=== PATIENT | male | born 1995 | race Caucasian/White ===

== ENCOUNTER 2025-02-20 08:42 | Inpatient (IN) | payer SELFPAY ==
[~2025-02-20] VITALS: Ht 182.9 cm; Wt 121.1 kg
[2025-02-20] MEDS: SODIUM CHLORIDE 0.9% 1,000 ML IV ONE ×2 (09:15→13:55)
[2025-02-20] MEDS ORDERED: ASPIRIN 81MG TABLET PO ONE (09:15)
[2025-02-20] MEDS ORDERED: AMLODIPINE 10MG TABLET PO ONE (09:15)
[2025-02-20 10:04] LABS: BASOPHILS % 0.6 % (0.0-2.0); EOSINOPHILS % 0.4 % (0.0-5.0); HEMATOCRIT. 41.9 % (42.0-52.0); HEMOGLOBIN. 14.4 g/dL (14.0-18.0); MEAN CORPUSCULAR HEMOGLOBIN 28.1 pg (28.0-32.0); MEAN CORPUSCULAR HGB CONC 34.4 g/dL (31.0-37.0); MEAN CORPUSCULAR VOLUME 81.7 fL (80.0-94.0); MEAN PLATELET VOLUME 7.8 fl (7.4-10.4); MONOCYTES % 6.8 % (2.0-8.0); NEUTROPHILS % 75.2 % (40.0-76.0); PLATELET 246 x1000/uL (130-400); RED BLOOD CELL COUNT 5.12 mill/uL (4.7-6.1); RED CELL DISTRIBUTION WIDTH 13.5 % (11.6-14.6)
[2025-02-20 10:19] LABS: CHLORIDE 105 mEq/L (98-107); POTASSIUM 3.7 mEq/L (3.5-5.1); SODIUM 139 mEq/L (136-145)
[2025-02-20 10:20] LABS: CARBON DIOXIDE 21 mEq/L (21-32)
[2025-02-20 10:21] LABS: CALCIUM 8.8 mg/dL (8.7-10.4)
[2025-02-20 10:25] LABS: GLUCOSE 113 mg/dL (70-105); UREA NITROGEN BLOOD 10 mg/dL (9-23)
[2025-02-20 10:26] LABS: ETHANOL BLOOD 65 mg/dL (<10); TROPONIN I HIGH SENSITIVITY 23 ng/L (3.0-53)
[2025-02-20] MEDS: ALPRAZOLAM 0.5 MG TABLET PO ONE (10:43)
[2025-02-20] MEDS: ASPIRIN 81MG TABLET PO NR (10:53)
[2025-02-20] MEDS: AMLODIPINE 10MG TABLET PO NR (11:10)
[2025-02-20 12:47] LABS: TROPONIN I HIGH SENSITIVITY 26 ng/L (3.0-53)
[2025-02-20] MEDS: LISINOPRIL 10MG TABLET PO NR (13:15)
[2025-02-20] MEDS: LOSARTAN 50 MG TABLET PO STA (13:54)
[2025-02-20] MEDS: LORAZEPAM 0.5MG TABLET PO ONE (14:03)
[2025-02-20] MEDS ORDERED: NITROGLYCERIN 0.4MG TABLET SL SL PRN (14:45)
[2025-02-20] MEDS ORDERED: ONDANSETRON HCL 4MG/2ML INJ IV PRN (14:45)
[2025-02-20] MEDS ORDERED: ACETAMINOPHEN 325MG TABLET PO PRN ×2 (14:45)
[2025-02-20] MEDS ORDERED: IPRATROPIUM/ALBUTEROL 0.5-3(2.5)MG/3ML NEB HHN PRN (14:45)
[2025-02-20] MEDS ORDERED: HYDROCODONE/ACETAMINOPHEN 5/325MG TABLET PO PRN (14:45)
[2025-02-20] MEDS ORDERED: DOCUSATE SODIUM 100MG CAPSULE PO PRN (14:45)
[2025-02-20] MEDS ORDERED: GUAIFENESIN 200MG/10ML SUGAR FREE UDC PO PRN (14:45)
[2025-02-20] MEDS ORDERED: LORAZEPAM 0.5MG TABLET PO PRN (14:45)
[2025-02-20] MEDS ORDERED: CLONIDINE 0.1MG TABLET PO PRN (14:45)
[2025-02-20] MEDS ORDERED: MORPHINE SULFATE 4 MG/ML INJ (FOR IV/IM USE) IV PRN (14:45)
[2025-02-20] MEDS ORDERED: MAGNESIUM/ALUMINUM HYDROXIDE/SIMETHICONE 30ML UDC PO PRN (14:45)
[2025-02-20] MEDS ORDERED: ASPIRIN 325MG EC TABLET PO SCH (15:00)
[2025-02-20] MEDS ORDERED: HYDRALAZINE 20MG/ML VIAL IV SCH (15:00)
[2025-02-20 18:00] VITALS: BP 155/112; PULSE 114; RESP 18; O2SAT 97
[2025-02-20 18:01] VITALS: BP 149/105; PULSE 118; RESP 20; O2SAT 97
[2025-02-20] MEDS: PANTOPRAZOLE SODIUM 40 MG/VIAL IV SCH (18:16)
[2025-02-20] MEDS: METOPROLOL TARTRATE 25MG TABLET PO SCH ×2 (18:16→21:33)
[2025-02-20] MEDS: HYDRALAZINE 20MG/ML VIAL IV SCH (18:45)
[2025-02-20] MEDS: SODIUM CHLORIDE 0.9% 1,000 ML IV SCH (18:45)
[2025-02-20 20:00] VITALS: BP_SYST 141; BP_SYST 143; BP_DIAS 91; BP_DIAS 99; PULSE 97; PULSE 98; RESP 18; RESP 22; TEMP 36.7; O2SAT 97
[2025-02-20] MEDS: ATORVASTATIN CALCIUM 40MG TABLET PO SCH (21:32)
[2025-02-20] MEDS: ENOXAPARIN 40MG/0.4ML SYR SUBCUT SCH (21:34)
[2025-02-20 22:00] VITALS: BP 135/89; PULSE 107; RESP 25; O2SAT 97
[2025-02-20 23:13] LABS: CREATINE KINASE MB FRACTION 0.9 ng/mL (0.5-3.6)
[2025-02-21] VITALS (13 sets, daily range): BP systolic 125–166; BP diastolic 73–114; PULSE 74–93; RESP 10–30; TEMP 36.2–36.8; O2SAT 92–99
[2025-02-21 06:40] LABS: BASOPHILS % 0.3 % (0.0-2.0); EOSINOPHILS % 2.4 % (0.0-5.0); HEMATOCRIT. 39.8 % (42.0-52.0); HEMOGLOBIN. 13.5 g/dL (14.0-18.0); LYMPHOCYTES % 18.7 % (20.0-50.0); MEAN CORPUSCULAR HEMOGLOBIN 27.8 pg (28.0-32.0); MEAN CORPUSCULAR VOLUME 81.8 fL (80.0-94.0); MEAN PLATELET VOLUME 8.7 fl (7.4-10.4); MONOCYTES % 9.1 % (2.0-8.0); NEUTROPHILS % 69.5 % (40.0-76.0); PLATELET 211 x1000/uL (130-400); RED BLOOD CELL COUNT 4.87 mill/uL (4.7-6.1); RED CELL DISTRIBUTION WIDTH 13.6 % (11.6-14.6); WHITE BLOOD COUNT 11.1 x1000/uL (4.5-11.0)
[2025-02-21 06:51] LABS: CARBON DIOXIDE 25 mEq/L (21-32); CHLORIDE 103 mEq/L (98-107); POTASSIUM 4.2 mEq/L (3.5-5.1); SODIUM 138 mEq/L (136-145)
[2025-02-21 06:52] LABS: CALCIUM 8.8 mg/dL (8.7-10.4); CREATINE KINASE MB FRACTION 0.9 ng/mL (0.5-3.6)
[2025-02-21 06:54] LABS: T4 FREE 1.34 ng/dL (0.89-1.76)
[2025-02-21 06:55] LABS: THYROID STIMULATING HORMONE 1.65 uIU/mL (0.55-4.78)
[2025-02-21 06:57] LABS: CREATININE 1.1 mg/dL (0.6-1.3); GLUCOSE 95 mg/dL (70-105); TRIGLYCERIDE 418 mg/dL (0-150); UREA NITROGEN BLOOD 15 mg/dL (9-23)
[2025-02-21 06:58] LABS: LDL CHOLESTEROL 127 mg/dL (5-100)
[2025-02-21 06:59] LABS: CHOLESTEROL 210 mg/dL (<200); HDL CHOLESTEROL 34 mg/dL (>55)
[2025-02-21] MEDS: AMLODIPINE 10MG TABLET PO SCH (11:37)
[2025-02-21] MEDS: THIAMINE HCL 100MG TABLET PO SCH (11:37)
[2025-02-21] MEDS: ASPIRIN 81MG EC TABLET PO SCH (11:37)
[2025-02-21] MEDS: FOLIC ACID 1MG TABLET PO SCH (11:37)
[2025-02-21] MEDS: LISINOPRIL 10MG TABLET PO SCH (11:38)
[2025-02-21] MEDS ORDERED: LIP40 PO (17:44)
[2025-02-21] MEDS ORDERED: LOSARTAN 25 MG TABLET PO SCH (18:15)
[2025-02-22] VITALS: BP 121/79; PULSE 72; RESP 15; TEMP 36.8; O2SAT 97
[2025-02-22 02:00] VITALS: BP 119/78; PULSE 66; RESP 10; O2SAT 97
[2025-02-22 04:00] VITALS: BP 109/86; PULSE 71; RESP 12; TEMP 36.2; O2SAT 96
[2025-02-22 06:00] VITALS: BP 107/64; PULSE 76; RESP 13; O2SAT 99
[2025-02-22] MEDS ORDERED: AMLO10TA80 PO (07:35)
[2025-02-22] MEDS ORDERED: LIP40 PO (07:36)
[2025-02-22 08:00] VITALS: BP 114/94; PULSE 69; RESP 13; TEMP 36.6; O2SAT 98
[2025-02-22] MEDS: FAMOTIDINE 20MG/2ML VIAL IV SCH (09:19)
[2025-02-22] MEDS: LISINOPRIL 20MG TABLET PO SCH (09:40)
[2025-02-22] MEDS: AMLODIPINE 10MG TABLET PO SCH (09:40)
[2025-02-22 11:24] VITALS: BP 153/103; PULSE 83; TEMP 97.9; O2SAT 98
== END 2025-02-22 12:15 | disposition home or self-care (01) | DRG 199 ==
LOC: ER 08:42 → EDBEDREQ 13:10 → 5EST 13:28 → EDBEDREQ 13:31 → EDBEDREQTM 13:31 → ENRESERV 14:19 → CANRESERV 14:29 → ENRESERV 14:29 → EDBEDREQSVC 14:54 → ENRESERV 16:55
PROVIDERS: ADMIT Hospitalist; ATTEND Hospitalist
DX: I16.9 Hypertensive crisis, unspecified (principal); F10.10 Alcohol abuse, uncomplicated; F15.10 Other stimulant abuse, uncomplicated; I10 Essential (primary) hypertension; D72.829 Elevated white blood cell count, unspecified; I20.9 Angina pectoris, unspecified; F19.90 Other psychoactive substance use, unspecified, uncomplicated; F41.9 Anxiety disorder, unspecified; Z79.82 Long term (current) use of aspirin; Z87.891 Personal history of nicotine dependence; Z79.899 Other long term (current) drug therapy
CPT/HCPCS: 36415; 80048; 80061; 80320; 82550; 82553; 82962; 84439; 84443; 84484; 85025; 93005; 99291; A4606; J0360; J1650; J2470; J3490; J7030; G0480